=== PATIENT | female | born 1955 | race Hispanic/Latino ===

== ENCOUNTER 2017-01-21 17:32 | Emergency (ER) | payer MEDICAID ==
[2017-01-21 17:57] VITALS: RESP 18; TEMP 98; O2SAT 98
--- NOTE | 2017-01-21 18:18 | C.PDOC ---
History Of Present Illness 61-year-old female, presents to the emergency department with complaints of recurring vaginal bleeding that started today. Patient states she had her first episode about three weeks ago, which lasted six days and spontaneously resolved. States she is pending an outpatient "x-ray" in five days. Pt notes associated abdominal cramping. Denies nausea/vomiting, fevers, chills, shortness of breath, chest pain, dizziness, or any other associated symptoms. No other complaints at this time. Time Seen by Provider: 01/21/17 18:06 Chief Complaint (Nursing): Female Genitourinary History Per: Patient History/Exam Limitations: no limitations Onset/Duration Of Symptoms: Days Current Symptoms Are (Timing): Still Present Past Medical History Reviewed: Historical Data, Nursing Documentation, Vital Signs Vital Signs: Last Vital Signs Temp 98 F 01/21/17 18:48 Pulse 66 01/21/17 18:48 Resp 18 01/21/17 18:48 BP 120/77 01/21/17 18:48 Pulse Ox 98 01/21/17 18:48 - Medical History PMH: Depression, Schizophrenia Family History: States: Unknown Family Hx - Social History Hx Tobacco Use: Yes Hx Alcohol Use: No Hx Substance Use: No - Immunization History Hx Tetanus Toxoid Vaccination: No Hx Influenza Vaccination: No Hx Pneumococcal Vaccination: No Review Of Systems Except As Marked, All Systems Reviewed And Found Negative. Constitutional: Negative for: Fever, Chills Cardiovascular: Negative for: Palpitations, Paroxysmal Noc. Dyspnea Respiratory: Negative for: Shortness of Breath Gastrointestinal: Positive for: Abdominal Pain (cramping). Negative for: Nausea , Vomiting Genitourinary: Positive for: Vaginal Bleeding. Negative for: Dysuria, Frequency , Incontinence, Vaginal Discharge, Pelvic Pain Musculoskeletal: Negative for: Back Pain Skin: Negative for: Rash Neurological: Negative for: Weakness, Numbness, Dizziness Physical Exam - Physical Exam Appears: Non-toxic, No Acute Distress, Other (No pallor) Skin: Warm, Dry, No Rash Head: Atraumatic, Normacephalic Eye(s): bilateral: Normal Inspection, PERRL Nose: Normal Oral Mucosa: Moist, Dry Neck: Normal ROM Chest: Symmetrical Cardiovascular: Rhythm Regular Respiratory: Normal Breath Sounds, No Accessory Muscle Use Gastrointestinal/Abdominal: Soft, No Tenderness Pelvic: Normal External Exam, Other (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 No active bleeding ) Extremity: Normal ROM Neurological/Psych: Oriented x3, Normal Speech ED Course And Treatment O2 Sat by Pulse Oximetry: 98 Disposition Counseled Patient/Family Regarding: Studies Performed, Diagnosis, Need For Followup - Disposition Referrals: [facility] [Outside] [facility] [Outside] [facility] [Outside] Disposition: HOME/ ROUTINE Disposition Time: 18:18 Condition: GOOD Additional Instructions: FOLLOW UP WITH YOUR ULTRASOUND SCHEDULED, YOUR PMD AND/OR OBGYN Instructions: Dysfunctional Uterine Bleeding (ED) - Clinical Impression Clinical Impression: DUB (dysfunctional uterine bleeding) - Scribe Statement The provider has reviewed the documentation as recorded by the Scribnirali David All medical record entries made by the Desmondibe were at my direction and personally dictated by me. I have reviewed the chart and agree that the record accurately reflects my personal performance of the history, physical exam, medical decision making, and the department course for this patient. I have also personally directed, reviewed, and agree with the discharge instructions and disposition.
[2017-01-21 18:50] VITALS: BP 120/77; PULSE 66
== END 2017-01-21 18:48 | disposition home or self-care (01) ==
LOC: C.ER 17:32
DX: N93.8 Other specified abnormal uterine and vaginal bleeding (principal)